=== PATIENT | male | born 1965 | race Caucasian/White ===

== ENCOUNTER 2020-10-01 14:49 | Emergency (ER) | payer OTHER, SELFPAY ==
[2020-10-01 14:52] VITALS: BP 120/70; PULSE 74; RESP 18; TEMP 36.2; O2SAT 98
--- NOTE | 2020-10-01 15:07 | ED.GENADUL_ITS ---
Discharge Plan Disposition Patient Disposition: HOME Condition: Stable Discharge Details Clinical Impression: Dental infection Primary Care Provider: Teresa,Local ED Provider: David Solomon Home Meds and New Rx's Prescriptions: New clindamycin HCl 300 mg capsule 300 mg PO Q8H 10 Days Qty: 30 RF: 0 Discharge Instructions Instructions: Dental Abscess (ED) Care Plan Goals: Clindamycin as directed. [id number] Tylenol and/or Motrin as directed for discomfort. Salt water swish and spit as tolerated. Cool and/or warm compresses every 2 hours for 20 minutes. Please watch for new or worsening symptoms and return to the ER for any concerns. Using the paper provided, logan zaragoza establish outpatient dental care at next available appointment. Medical Decision Making 55-year-old current smoker presents complaining of ongoing dental pain worsening over the past day or 2. He appears well, nontoxic. Patient does not want any pain control, denies any dental block. Primary concern is that of antibiotics. We will give his first dose of amoxicillin now and provide a prescription. We will also provide him with the local dental list to help expedite outpatient care. We discussed salt water swishes and spit, [id number] Tylenol and/or Motrin, cool and/or warm compresses as tolerated. She was encouraged to return to the ER for new or worsening symptoms. Patient specifically tells me that he has no allergies to medications. Is perfectly comfortable taking amoxicillin Patient later tells me that he is not comfortable taking amoxicillin, will give clindamycin instead HPI General Mode of arrival: ambulatory . Date/Time Provider Initiated Documentation: 10/01/20 15:06 . Limitations to Documentation: no limitations . Information obtained by: patient . HPI Narrative: 55-year-old gentleman, current smoker, denies any significant past medical history. He reports overall poor dentition, right upper tooth has been bothering him for little while now worse over the past 24-48 hours. Taking Motrin with some relief. Denies ear pain, sore throat, fever, headache. He is in the process now of obtaining a new local dentist to follow-up as an outpatient. He denies any other recent illness or trauma. Reports the pain is moderate currently. Related Data Home Medications Medication Instructions Recorded Confirmed clindamycin HCl 300 mg PO Q8H 10 Days #30 cap 10/01/20 Previous Rx's Medication Instructions Recorded clindamycin HCl 300 mg PO Q8H 10 Days #30 cap 10/01/20 Allergies Allergy/AdvReac Type Severity Reaction Status Date / Time Penicillins AdvReac Skin Rash Unverified 10/01/20 14:56 General Stated Complaint: DentalOral DONNA: 4 Review of Systems Constitutional Constitutional: Denies fatigue, Denies fever(s) and Denies headache(s) ENT Ears, Nose, Mouth, and Throat: Denies headache(s), Denies neck pain and Denies sore throat Musculoskeletal Musculoskeletal: Denies neck pain Integumentary/Breasts Skin/Breast: Denies rash Neurologic Neurologic: Denies headache(s) Endocrine Endocrine: Denies fatigue PFSH Social History Smoking/Tobacco Use Status: Current every day Tobacco Type: cigarettes Smoking risk assessment performed?: Yes Alcohol Intake: never Drug use: Never Substance use type: does not use Do you feel safe at home: Yes Do you feel safe in your relationship?: Yes Exam Const General: cooperative, healthy appearing, comfortable and no acute distress Orientation: alert and awake HENMT Head: normal to inspection, normocephalic and atraumatic Ears: external ears normal, TM's normal bilaterally and EAC's normal General nose exam: external nose normal Face and sinus: normal facial exam Mouth: moist mucous membranes Teeth and gingiva: poor dentition Teeth image: 1. Tiana, discomfort. No localized gum erythema, swelling, pointing abscess Throat: posterior oropharynx normal Eyes General: appearance normal, both eyes and all related structures Conjunctivae: conjunctivae normal Sclera: sclerae normal Neck Neck: normal visual inspection, full ROM, no lymphadenopathy, no meningeal signs , trachea midline, supple and nontender Resp Effort & Inspection: normal respiratory effort and able to speak in complete sentences Cardio Rate: regular rate Rhythm: regular rhythm Skin General skin exam: no rashes or lesions noted Neuro General: patient alert, patient awake, moves all extremities and no focal motor deficits Sensory Exam: no sensory deficits noted Psych Appearance: grossly normal Mental Status: mental status grossly normal Course Vital Signs Vital signs: Vital Signs Temperature 36.2 C L 10/01/20 14:52 Pulse 74 10/01/20 14:52 Respiratory Rate 18 10/01/20 14:52 Blood Pressure 120/70 10/01/20 14:52 Pulse Oximetry 98 10/01/20 14:52 Temperature 36.2 C L 10/01/20 14:52 Pulse 74 10/01/20 14:52 Respiratory Rate 18 10/01/20 14:52 Respiratory Effort Non-Labored 10/01/20 14:56 Blood Pressure 120/70 10/01/20 14:52 Blood Pressure Position Sitting 10/01/20 14:52 Pulse Oximetry 98 10/01/20 14:52 Oxygen Delivery Method Room Air 10/01/20 14:52 Oxygen Flow Rate 0 10/01/20 14:52 Pain Level 2 10/01/20 14:52
[2020-10-01] MEDS: Clindamycin 300 MG CAP PO (15:29)
== END 2020-10-01 15:34 | disposition home or self-care (01) ==
PROVIDERS: Emergency Provider Physician Assistant
DX: R68.84 Jaw pain (principal); K04.7 Periapical abscess without sinus
CPT/HCPCS: 99283

== ENCOUNTER 2020-12-09 07:01 | Emergency (ER) | payer OTHER, SELFPAY ==
[2020-12-09 07:05] VITALS: BP 129/59; PULSE 67; RESP 15; TEMP 36.6; O2SAT 100
--- NOTE | 2020-12-09 07:25 | ED.GENADUL_ITS ---
Discharge Plan Disposition Patient Disposition: HOME Condition: Good Discharge Details Clinical Impression: Cellulitis Primary Care Provider: Teresa,Local ED Provider: Adonis Mcleod Meds and New Rx's Prescriptions: New cephalexin 500 mg capsule 500 mg PO TID Qty: 20 RF: 0 Discharge Instructions Instructions: Cellulitis (ED) Additional Instructions: Antibiotic as directed. Elevate leg to prevent swelling. Follow-up with primary care next week if not better. Return to ED for spiking fevers, quickly progressing redness, increasing pain, other concerns. Referrals: Primary Care Provider [Outside] Medical Decision Making Early cellulitis of the left ankle, which he has had previously. No systemic s igns. Will start on cephalexin as he has had this previously despite his penicillin allergy. Elevate to prevent swelling. Follow-up with PCP next week if not better. Return to ED if worse. HPI General Mode of arrival: ambulatory . Date/Time Provider Initiated Documentation: 12/09/20 07:25 . Limitations to Documentation: no limitations . Information obtained by: patient and RN notes reviewed . HPI Narrative: Patient presents to ED with redness and discomfort to the left ankle. He has had previous cellulitis in same area before. Began noticing symptoms 3 to 4 days ago. Used topical antibiotic ointment but continued to progress. It is pruritic at times. Not overly painful. It has begun to get larger which prompted him to come to the ED. He denies having fevers or chills. He denies severe pain at all. No swelling. Related Data Home Medications Medication Instructions Recorded Confirmed cephalexin 500 mg PO TID #20 cap 12/09/20 Previous Rx's Medication Instructions Recorded cephalexin 500 mg PO TID #20 cap 12/09/20 Allergies Allergy/AdvReac Type Severity Reaction Status Date / Time Penicillins AdvReac Skin Rash Unverified 12/09/20 07:12 General Stated Complaint: Cellulitis DONNA: 3 Review of Systems Narrative: As documented in HPI otherwise negative as below. Const: no fever, chills, weakness Resp: no cough, SOB Neuro: no headache, numbness, focal weakness, confusion [facility] Medical History No significant past medical history Surgical History No significant past surgical history Social History Smoking/Tobacco Use Status: Current every day Tobacco Type: cigarettes Smoking risk assessment performed?: Yes Alcohol Intake: never Drug use: Never Substance use type: does not use Do you feel safe at home: Yes Do you feel safe in your relationship?: Yes Exam Narrative Exam Narrative: Const: WDWN male in NAD. HEENT: NC/AT. Normal facial exam. Neck: Supple. Trachea midline. Lungs: Normal respiratory effort. Neuro: A+O x 3. Normal speech, mentation, gait. Cranial nerves II - XII grossly intact. No gross motor or sensory deficit. Ext: No C/C/E. Skin: Area of warm redness medial left ankle area. No significant tenderness. Course Vital Signs Vital signs: Vital Signs Temperature 97.9 F 12/09/20 07:05 Pulse 67 12/09/20 07:05 Respiratory Rate 15 12/09/20 07:05 Blood Pressure 129/59 L 12/09/20 07:05 Pulse Oximetry 100 12/09/20 07:05 Temperature 97.9 F 12/09/20 07:05 Temperature Source Temporal Artery Scan 12/09/20 07:05 Pulse 67 12/09/20 07:05 Respiratory Rate 15 12/09/20 07:05 Respiratory Effort Non-Labored 12/09/20 07:11 Blood Pressure 129/59 L 12/09/20 07:05 Blood Pressure Position Sitting 12/09/20 07:05 Pulse Oximetry 100 12/09/20 07:05 Oxygen Delivery Method Room Air 12/09/20 07:05 Oxygen Flow Rate 0 12/09/20 07:05 Pain Level 1 12/09/20 07:05
[2020-12-09] MEDS: Cephalexin 500 MG CAP PO (07:34)
== END 2020-12-09 07:38 | disposition home or self-care (01) ==
PROVIDERS: Emergency Provider Emergency Medicine
DX: L03.116 Cellulitis of left lower limb (principal)
CPT/HCPCS: 99283

== ENCOUNTER 2021-02-16 08:09 | Outpatient (REF) | payer OTHER, SELFPAY ==
[2021-02-16 16:04] LABS: Anion Gap 10.1 mmol/L (3-11); BUN 10 mg/dL (7-18); CO2 28.9 mmol/L (21.0-32.0); CREATININE 1.1 mg/dL (0.70-1.30); Calcium 9.6 mg/dL (8.5-10.1); Calculated LDL 181 mg/dL (<100); Chloride 103 mmol/L (98-107); Cholesterol 240 mg/dL (<200); Glucose 96 mg/dL (74-106); HDL Cholesterol 46 mg/dL (40-60); Potassium 4.5 mmol/L (3.5-5.1); Sodium 142 mmol/L (136-145); Triglyceride 69 mg/dL (<150)
[2021-02-16 22:44] LABS: PSA, Screening 1.3 ng/mL (0.0-3.5)
== END 2021-02-16 08:10 | disposition home or self-care (01) ==
LOC: NCHCN 08:09
PROVIDERS: PCP Physician Assistant; Visit Provider Physician Assistant
DX: I83.10 Varicose veins of unspecified lower extremity with inflammation (principal); Z00.00 Encounter for general adult medical examination without abnormal findings; Z12.5 Encounter for screening for malignant neoplasm of prostate; Z13.220 Encounter for screening for lipoid disorders
CPT/HCPCS: 80048; 80061; 84153

== ENCOUNTER 2023-08-01 23:01 | Emergency (ER) | payer OTHER, SELFPAY ==
--- NOTE | 2023-08-01 23:18 | W.ED.GENAD ---
Discharge Plan Disposition Patient Disposition: Home Condition: Good Discharge Details Clinical Impression: Cellulitis of arm, left Primary Care Provider: Mejia Pappas ED Provider: Alexander Cruz Home Meds and New Rx's Prescriptions: New cephalexin 500 mg capsule 500 mg PO QID 7 Days Qty: 28 0RF Discontinued cephalexin 500 mg capsule 500 mg PO TID Qty: 20 0RF Discharge Instructions Instructions: Cellulitis (ED) Additional Instructions: At this time you have evidence of cellulitis. Please take the antibiotic Keflex as directed. He has been sent to your pharmacy on file. Please apply the hydrocortisone cream, small amount to each affected area to times per day. If you notice any worsening of your symptoms, or any new symptoms such as vomiting, diarrhea, fever, chills, shortness of breath, chest pain, numbness, weakness, or fainting , please return immediately to the emergency department for reevaluation. Please follow up with your primary care provider as soon as possible for reassessment and reevaluation. As always, it was a pleasure participating in your medical care today. Referrals: Mejia Pappas [Primary Care Provider] - Medical Decision Making This is a pleasant 57-year-old male with no significant past medical history who does smoke, and reports poor dentition, who presents today for evaluation of suspected cellulitis. Patient states that in the past he has had episodes of cellulitis that occur usually on his ankle, however this time he developed a small area on his left forearm, right axilla and left castellanos where he shaves. He denies cat Bites, dog bites, trauma, fever, chills, chest pain, shortness of breath. He states that the symptoms are identical to previous episode that he has had in the past. He does have a penicillin allergy, but has tolerated Keflex before. He denies any other complaints at this time. No other modifying factors. Exam demonstrates area of mild cellulitis on the left forearm right axilla and left chin. No evidence of abscess whatsoever. No other significant abnormalities. No murmur to suggest dissemination from oral lesions. No systemic symptomatology. Symptoms consistent with mild cellulitis. Will give Keflex, steroid ointment which she says has been notably helpful in the past. Discussed red flags for which to return. No current clinical evidence of staph scalded skin syndrome, erythema multiforme, erythema migrans, toxic epidermal necrolysis, Villasenor-Dustin syndrome, Kawasaki-like rash, meningococcemia, pemphigus vulgaris, or necrotizing fasciitis. I have extensively reviewed the treatment plan and discharge instructions with the patient. I have addressed all patient concerns at this time. The patient was made aware of what symptoms to monitor for that would warrant a return to the emergency department. Discussed the plan with the patient, they demonstrate verbal understanding and agreement with our assessment and plan at this time. The documentation in this chart was dictated using [employer] dictation software. Please excuse any dictation errors. HPI General Date/Time Provider Initiated Documentation: 08/01/23 23:02. HPI Narrative: This is a pleasant 57-year-old male with no significant past medical history who does smoke, and reports poor dentition, who presents today for evaluation of suspected cellulitis. Patient states that in the past he has had episodes of cellulitis that occur usually on his ankle, however this time he developed a small area on his left forearm, right axilla and left castellanos where he shaves. He denies cat Bites, dog bites, trauma, fever, chills, chest pain, shortness of breath. He states that the symptoms are identical to previous episode that he has had in the past. He does have a penicillin allergy, but has tolerated Keflex before. He denies any other complaints at this time. No other modifying factors. Related Data Home Medications Medication Instructions Recorded Confirmed cephalexin 500 mg capsule 500 mg PO QID 7 days #28 caps 08/01/23 Previous Rx's Medication Instructions Recorded cephalexin 500 mg capsule 500 mg PO QID 7 days #28 caps 08/01/23 Allergies Allergy/AdvReac Type Severity Reaction Status Date / Time Penicillins AdvReac Skin Rash Unverified 12/09/20 07:12 General DONNA: 3 Review of Systems All systems reviewed & are unremarkable except as noted in HPI and below PFSH All Active Problems Cellulitis of arm, left (Acute) Medical History No significant past medical history Surgical History No significant past surgical history Social History Smoking/Tobacco Use Status: Current every day Tobacco Type: cigarettes Smoking risk assessment performed?: Yes Alcohol Intake: never Drug use: Never Substance use type: does not use Do you feel safe at home: Yes Do you feel safe in your relationship?: Yes Exam Narrative Exam Narrative: 1.Const: Well-nourished, Well-developed, appearing stated age 2.Eyes: PERRL, no conjunctival injection, and symmetrical lids. 3.ENT: Atraumatic external nose and ears. Moist MM. Neck: Symmetric, trachea midline, No thyromegaly. 4.CVS: +S1/S2, No murmurs or gallops. Peripheral pulses 2+ and equal in all extremities. Brisk capillary refill in all extremities. 5.RESP: Unlabored respiratory effort. Clear to auscultation bilaterally. No wheezes rales or rhonchi 6.GI: Soft, Nontender/Nondistended, No hepatosplenomegaly. No guarding or rebound. 7.MSK: Normocephalic/Atraumatic, Extremities w/o deformity or ttp No cyanosis or clubbing, Normal movement of all extremities 8.Skin: Patient demonstrates a small area of redness on the left forearm, small area of redness on the right axilla, and small area of redness on the left chin. No fluctuance. No evidence of abscess. No lesions to suggest erythema nodosum. Negative Nikolsky sign. No large vesicles or bulla. No palpable purpura. No oral lesions. No mucosal lesions. No evidence of severe cellulitis. No evidence of vaccine preventable rash. 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 Sensation grossly intact, no focal neurologic deficits. 10.Psych: (AAO) x3. Appropriate mood and affect
[2023-08-01 23:21] VITALS: BP 98/66; PULSE 78; RESP 16; TEMP 36.5; O2SAT 97
[2023-08-01] MEDS: Hydrocortisone 1% CR 30 GM TUBE TP (23:29)
[2023-08-01] MEDS: Cephalexin 500 MG CAP, 4 CAPS/BTL PO (23:29)
== END 2023-08-01 23:30 | disposition home or self-care (01) ==
PROVIDERS: Emergency Provider Student in an Organized Health Care Education/Training Program; PCP Physician Assistant
DX: L03.116 Cellulitis of left lower limb (principal); L03.111 Cellulitis of right axilla; L03.114 Cellulitis of left upper limb; F17.210 Nicotine dependence, cigarettes, uncomplicated
CPT/HCPCS: 99283

== ENCOUNTER 2024-05-28 06:59 | Emergency (ER) | payer OTHER, SELFPAY ==
[2024-05-28 07:04] VITALS: BP 132/61; PULSE 65; RESP 16; TEMP 36.2; O2SAT 100
--- NOTE | 2024-05-28 07:19 | ED.GENADUL_ITS ---
Discharge Plan Disposition Patient Disposition: Home Condition: Stable Discharge Details Clinical Impression: Cellulitis of right forearm, Rash of hand Primary Care Provider: Mejia Pappas ED Provider: Baron Soriano Home Meds and New Rx's Prescriptions: New cephalexin 500 mg capsule 500 mg PO QID Qty: 24 0RF Discharge Instructions Instructions: Cellulitis (Skin Infection), Adult ED Additional Instructions: Please take full course of antibiotic as prescribed. Please follow-up with your primary care physician. Return to the ER immediately for any worsening or new concerning symptoms. Referrals: Mejia Pappas [Primary Care Provider] - [facility] General Mode of arrival: ambulatory . Date/Time Provider Initiated Documentation: 05/28/24 07:05 . Limitations to Documentation: no limitations . Information obtained by: patient . HPI Narrative: 58-year-old male here with chief complaint of rash. Patient notes rash of his right forearm started 2 days ago and has increased in size. Patient notes rash is intermittently quite itchy. He believes he initially had a bug bite that became inflamed and infected. He also notes some rash interdigital second and third webspaces of his right hand. He denies associated fever. No other rash. Patient notes prior history of cellulitis that was treated about a year ago with cephalexin. Related Data Home Medications ?Medication ?Instructions ?Recorded ?Confirmed cephalexin 500 mg capsule 500 mg PO QID #24 caps 05/28/24 Previous Rx's ?Medication ?Instructions ?Recorded cephalexin 500 mg capsule 500 mg PO QID #24 caps 05/28/24 Allergies Allergy/AdvReac Type Severity Reaction Status Date / Time Penicillins AdvReac Skin Rash Unverified 05/28/24 07:07 General Stated Complaint: RashLesion DONNA: 4 Review of Systems Constitutional Constitutional: Denies fever(s) Integumentary/Breasts Skin/Breast: Reports as per HPI Exam Const General: cooperative and no acute distress HENMT Mouth: moist mucous membranes Eyes Conjunctivae: normal conjunctivae Resp Auscultation: clear to auscultation bilaterally, no rales, no rhonchi and no wheezes Cardio Rate: regular rate and not tachycardic Rhythm: regular rhythm Skin Rashes: rashes noted Other: 1) approximately 8 x 4 cm circular erythematous patch right forearm, no induration or fluctuance 2) second and third webspace right hand with mild erythema and small papules Neuro General: patient alert, patient awake and tone normal Extrem General: no edema Course Vital Signs Vital signs: Vital Signs Temperature 36.2 C L 05/28/24 07:04 Pulse 65 05/28/24 07:04 Respiratory Rate 16 05/28/24 07:04 Blood Pressure 132/61 05/28/24 07:04 Pulse Oximetry 100 05/28/24 07:04 Temperature 36.2 C L 05/28/24 07:04 Temperature Source Temporal Artery Scan 05/28/24 07:04 Pulse 65 05/28/24 07:04 Respiratory Rate 16 05/28/24 07:04 Respiratory Effort Normal, Non-Labored 05/28/24 07:06 Blood Pressure 132/61 05/28/24 07:04 Blood Pressure Position Sitting 05/28/24 07:04 Pulse Oximetry 100 05/28/24 07:04 Oxygen Delivery Method Room Air 05/28/24 07:04 Oxygen Flow Rate 0 05/28/24 07:04 Pain Level 5 05/28/24 07:04 Medical Decision Making 58-year-old male here with rash involving his right forearm as well as second and third webspace of his right hand. Patient notes intermittent history of cellulitis in the past and most recently about a year ago that was treated with Keflex. Patient is afebrile and otherwise well-appearing. Hemodynamically stable. Suspect cellulitis of the right forearm. No systemic symptoms. Suspect infectious versus inflammatory etiology for rash involving the hand. Plan to treat with Keflex. Plan for outpatient follow-up with PCP for reassessment. Usual customary discharge instructions were reviewed with the patient. We did discuss smoking cessation. Patient is not currently motivated to stop smoking. Quality:SDOH Health Related Social Needs: No Data to Display PFSH All Active Problems Rash of hand (Acute) Cellulitis of right forearm (Acute) Medical History No significant past medical history Surgical History No significant past surgical history Social History Smoking/Tobacco Use Status: Current every day Tobacco Type: cigarettes Smoking risk assessment performed?: Yes Alcohol Intake: never Drug use: Never Substance use type: does not use Housing: house Do you feel safe at home: Yes Do you feel safe in your relationship?: Yes
[2024-05-28] MEDS: Cephalexin 500 MG CAP PO (07:28)
== END 2024-05-28 07:32 | disposition home or self-care (01) ==
PROVIDERS: Emergency Provider Student in an Organized Health Care Education/Training Program; PCP Physician Assistant
DX: R21 Rash and other nonspecific skin eruption (principal); L03.113 Cellulitis of right upper limb
CPT/HCPCS: 99283